=== PATIENT | male | born 1940 | race Caucasian/White ===

== ENCOUNTER 2016-04-02 07:56 | Outpatient (CLI) | payer MEDICARE, OTHER | END 2016-04-02 07:57 | disposition home or self-care (01) | DX: E78.2 Mixed hyperlipidemia (principal); Z79.899 Other long term (current) drug therapy; I10 Essential (primary) hypertension; I25.10 Atherosclerotic heart disease of native coronary artery without angina pectoris ==

== ENCOUNTER 2016-04-17 11:13 | Outpatient (CLI) | payer MEDICARE, OTHER | END 2016-04-17 11:14 | disposition home or self-care (01) | DX: I71.4 Abdominal aortic aneurysm, without rupture (principal) ==

== ENCOUNTER 2016-04-23 08:00 | Outpatient (CLI) | payer MEDICARE, OTHER | END 2016-04-23 08:01 | disposition home or self-care (01) | DX: R73.09 Other abnormal glucose (principal) ==

== ENCOUNTER 2016-08-07 08:03 | Outpatient (CLI) | payer MEDICARE, OTHER ==
[2016-08-07 14:31] LABS: HEMOGLOBIN A1C 0.71 g/dL
== END 2016-08-07 08:04 | disposition home or self-care (01) ==
LOC: LAB.R 08:03
PROVIDERS: ATTEND Physician Assistant Medical
DX: E11.9 Type 2 diabetes mellitus without complications (principal)
CPT/HCPCS: 82947; 83036

== ENCOUNTER 2016-10-13 11:29 | Outpatient (CLI) | payer MEDICARE, OTHER ==
[2016-10-13 12:07] LABS: BASOPHILS # (AUTO) 0.1 10^3/uL (0.0-0.1); BASOPHILS % (AUTO) 0.8 %; EOSINOPHILS # (AUTO) 0.1 10^3/uL (0.0-0.7); EOSINOPHILS % (AUTO) 1.6 %; HCT - HEMATOCRIT 40.5 % (42.0-52.0); HGB - HEMOGLOBIN 13.9 g/dL (14.0-18.0); LYMPHOCYTES # (AUTO) 1.6 10^3/uL (1.5-3.5); LYMPHOCYTES % (AUTO) 24.9 %; MEAN CORPUSCULAR HEMOGLOBIN 31.8 pg (27.0-31.0); MEAN CORPUSCULAR HGB CONC 34.3 g/dL (32.0-36.0); MEAN CORPUSCULAR VOLUME 92.7 fL (80.0-94.0); MEAN PLATELET VOLUME 8.2 fL (7.4-11.4); MONOCYTES # (AUTO) 0.5 10^3/uL (0.0-1.0); MONOCYTES % (AUTO) 8.1 %; NEUTROPHILS # (AUTO) 4.1 10^3/uL (1.5-6.6); NEUTROPHILS % (AUTO) 64.6 %; RED BLOOD COUNT 4.37 10^6/uL (4.70-6.10); UNCORRECTED WHITE BLOOD COUNT 6.4 x10^3/uL; WHITE BLOOD COUNT 6.4 x10^3/uL (4.8-10.8)
[2016-10-13 12:20] LABS: ALBUMIN/GLOBULIN RATIO 1.5 (1.0-2.2); BILIRUBIN,TOTAL 0.6 mg/dL (0.2-1.0); CALCIUM 9.7 mg/dL (8.5-10.3); CREATININE 1.1 mg/dL (0.6-1.2); POTASSIUM 4.6 mmol/L (3.5-5.0); TOTAL PROTEIN 7.2 g/dL (6.7-8.2)
[2016-10-13 12:27] LABS: CREATINE KINASE MB 6.1 ng/mL (0.6-6.3)
[2016-10-13 12:37] LABS: TROPONIN I < 0.04 ng/mL (<0.49)
== END 2016-10-13 11:30 | disposition home or self-care (01) ==
LOC: LAB 11:29
PROVIDERS: ATTEND Physician Assistant Medical
DX: R07.9 Chest pain, unspecified (principal); I10 Essential (primary) hypertension
CPT/HCPCS: 36415; 80053; 82553; 84484; 85025

== ENCOUNTER 2016-12-01 08:56 | Outpatient (CLI) | payer MEDICARE, OTHER ==
[2016-12-01 20:16] LABS: HEMOGLOBIN A1C 0.61 g/dL
== END 2016-12-01 08:57 | disposition home or self-care (01) ==
LOC: LAB.R 08:56
PROVIDERS: ATTEND Physician Assistant Medical
DX: E11.9 Type 2 diabetes mellitus without complications (principal); Z79.899 Other long term (current) drug therapy
CPT/HCPCS: 82947; 83036

== ENCOUNTER 2017-02-14 19:59 | Emergency (ER) | payer MEDICARE, OTHER ==
[2017-02-14 20:05] VITALS: BP 154/63
--- NOTE | 2017-02-14 20:28 | ED Physician Documentation ---
PD HPI SKIN - Stated complaint Stated Complaint: LIP LAC - Chief complaint Chief Complaint: Laceration - History obtained from History obtained from: Patient - History of Present Illness Timing - onset: Other (He has always had a mole on the upper lip, he is on Plavix. He cut himself shaving this morning and it has not stopped bleeding.) Review of Systems Constitutional: reports: Reviewed and negative Throat: reports: Reviewed and negative Cardiac: reports: Reviewed and negative PD PAST MEDICAL HISTORY - Past Medical History Past Medical History: Yes Cardiovascular: Other - Past Surgical History Past Surgical History: Yes - Present Medications Home Medications: Ambulatory Orders Medication Instructions Recorded Confirmed Aspirin 81 mg PO DAILY 09/06/14 02/14/17 Atorvastatin [Lipitor] 80 mg PO DAILY 09/06/14 02/14/17 Calcium Carbonate/Vitamin D3 1 each PO DAILY 02/14/17 02/14/17 [Calcium 600-Vit D3 500 Softgel] Clopidogrel [Plavix] 75 mg PO ONCE 02/14/17 02/14/17 Iron,Carbonyl/Ascorbic Acid [Fe C 1 tab PO DAILY 02/14/17 02/14/17 Tablet] Lisinopril 20 mg PO DAILY 02/14/17 02/14/17 Metoprolol Tartrate 50 mg PO DAILY 02/14/17 02/14/17 Nitroglycerin 0.4 mg SL PRN PRN 02/14/17 02/14/17 Ubidecarenone [Co Q-10] 10 mg PO DAILY 02/14/17 02/14/17 metFORMIN [Glucophage] 500 mg PO DAILY 02/14/17 02/14/17 - Allergies Allergies/Adverse Reactions: Allergies Allergy/AdvReac Type Severity Reaction Status Date / Time Sulfa (Sulfonamide Allergy Rash Verified 12/18/15 09:24 Antibiotics) - Social History Does the pt smoke?: No Smoking Status: Never smoker Does the pt drink ETOH?: No Does the pt have substance abuse?: No - Immunizations Immunizations are current?: Yes - POLST Patient has POLST: No PD ED PE NORMAL - Vitals Vital signs reviewed: Yes - General General: Alert and oriented X 3, No acute distress - HEENT HEENT: Other (There is a little lesion on the upper lip only about 2 mm around with active slight bleeding.) - Neck Neck: Supple, no meningeal sign, No bony TTP - Neuro Neuro: Alert and oriented X 3, Normal speech Results - Vitals Vitals: Vital Signs - 24 hr 02/14/17 20:03 Temperature 35.9 C L Heart Rate 66 Respiratory 18 Rate Blood Pressure 154/63 H O2 Saturation 99 Oxygen O2 Source Room air Procedures - General procedure General procedure: The bleeding area was locally infiltrated with lidocaine with epinephrine and then cauterized with silver nitrate with successful hemostasis. Departure - Departure Disposition: Home, Self Care Clinical Impression: Bleeding from wound Condition: Good Record reviewed to determine appropriate education?: Yes Instructions: ED Abrasion Comments: Your blood pressure was elevated today on check into the emergency department. This does not mean that you have hypertension, it is a common phenomenon to come to the emergency department and have elevated blood pressure. I recommend that you see your primary care physician within the week to have it rechecked when you are feeling better.
== END 2017-02-14 20:36 | disposition home or self-care (01) ==
LOC: ED 19:59
DX: S01.511A Laceration without foreign body of lip, initial encounter (principal); W45.8XXA Other foreign body or object entering through skin, initial encounter; Y93.E8 Activity, other personal hygiene; R03.0 Elevated blood-pressure reading, without diagnosis of hypertension; Z79.02 Long term (current) use of antithrombotics/antiplatelets; Z79.82 Long term (current) use of aspirin
CPT/HCPCS: 99282

== ENCOUNTER 2017-04-09 07:56 | Outpatient (CLI) | payer MEDICARE, OTHER ==
[2017-04-09 12:25] LABS: BASOPHILS % (AUTO) 0.9 %; EOSINOPHILS # (AUTO) 0.1 10^3/uL (0.0-0.7); EOSINOPHILS % (AUTO) 2.4 %; LYMPHOCYTES # (AUTO) 1.3 10^3/uL (1.5-3.5); LYMPHOCYTES % (AUTO) 28.8 %; MEAN CORPUSCULAR HGB CONC 33.1 g/dL (32.0-36.0); MEAN CORPUSCULAR VOLUME 93.7 fL (80.0-94.0); MEAN PLATELET VOLUME 9.2 fL (7.4-11.4); MONOCYTES # (AUTO) 0.4 10^3/uL (0.0-1.0); MONOCYTES % (AUTO) 9.3 %; NEUTROPHILS # (AUTO) 2.6 10^3/uL (1.5-6.6); NEUTROPHILS % (AUTO) 58.6 %; PLT - PLATELET COUNT 143 10^3/uL (130-450); RED BLOOD COUNT 4.21 10^6/uL (4.70-6.10); RED CELL DISTRIBUTION WIDTH 14.5 % (12.0-15.0); WHITE BLOOD COUNT 4.5 x10^3/uL (4.8-10.8)
[2017-04-09 12:29] LABS: ALBUMIN 4.1 g/dL (3.2-5.5); ALBUMIN/GLOBULIN RATIO 1.7 (1.0-2.2); ALKALINE PHOSPHATASE 50 IU/L (42-121); ALT ALANINE AMINOTRANSFERASE 24 IU/L (10-60); AST ASPARTATE AMINOTRANSFERASE 20 IU/L (10-42); BILIRUBIN,TOTAL 0.6 mg/dL (0.2-1.0); BUN - BLOOD UREA NITROGEN 18 mg/dL (6-20); CALCIUM 9.1 mg/dL (8.5-10.3); CARBON DIOXIDE - CO2 29 mmol/L (21-32); CHLORIDE 101 mmol/L (101-111); CHOL/HDL RATIO 3.2 (<5.0); CHOLESTEROL 118 mg/dL; CREATININE 1.1 mg/dL (0.6-1.2); GFR - MDRD 65 (>89); GLUCOSE 103 mg/dL (70-100); HDL CHOLESTEROL 37 mg/dL; LDL CHOLESTEROL,CALCULATED 55 mg/dL; LDL/HDL RATIO 1.5 (<3.6); SODIUM 138 mmol/L (135-145); TOTAL PROTEIN 6.5 g/dL (6.7-8.2); VLDL CHOLESTEROL 26 mg/dL
[2017-04-09 13:13] LABS: HEMOGLOBIN A1C 0.52 g/dL; HEMOGLOBIN A1C % 5.5 % (4.6-6.2)
== END 2017-04-09 07:57 | disposition home or self-care (01) ==
LOC: LAB.R 07:56
PROVIDERS: ATTEND Physician Assistant Medical
DX: Z79.899 Other long term (current) drug therapy (principal); E11.9 Type 2 diabetes mellitus without complications; Z12.5 Encounter for screening for malignant neoplasm of prostate; I25.10 Atherosclerotic heart disease of native coronary artery without angina pectoris; I10 Essential (primary) hypertension
CPT/HCPCS: 36415; 80053; 80061; 83036; 85025; G0103; 83721; 84153

== ENCOUNTER 2017-04-16 09:00 | Outpatient (CLI) | payer MEDICARE, OTHER ==
[2017-04-16 15:33] LABS: MEAN RETIC VALUE 118.2; RED BLOOD COUNT 4.55 10^6/uL (4.70-6.10)
[2017-04-16 16:02] LABS: FERRITIN 245.8 ng/mL (23.9-336.2)
== END 2017-04-16 09:01 | disposition home or self-care (01) ==
LOC: LAB.R 09:00
PROVIDERS: ATTEND Physician Assistant Medical
DX: D64.9 Anemia, unspecified (principal)
CPT/HCPCS: 82607; 82728; 83010; 85044; 86880

== ENCOUNTER 2017-06-07 09:30 | Outpatient (CLI) | payer MEDICARE, OTHER | END 2017-06-07 09:31 | disposition home or self-care (01) | LOC: SC 09:30 | PROVIDERS: ATTEND Internal Medicine Pulmonary Disease | DX: G47.30 Sleep apnea, unspecified (principal); G47.10 Hypersomnia, unspecified; G47.8 Other sleep disorders; R06.83 Snoring | CPT/HCPCS: 99203; G0463; 99212 ==

== ENCOUNTER 2017-06-16 05:45 | Emergency (ER) | payer MEDICARE, OTHER ==
--- NOTE | 2017-06-16 07:10 | XRAY Report ---
EXAM: RIGHT ANKLE RADIOGRAPHY EXAM DATE: 06/16/2017 06:53 AM. CLINICAL HISTORY: Pain after injury yesterday working in the yard. COMPARISON: None. TECHNIQUE: 3 views. FINDINGS: Bones: No acute fracture or focal osseous lesion. Joints: Normal. No effusion. No subluxations. The ankle mortise is normally aligned. Soft Tissues: Minimal soft tissue swelling, most pronounced laterally and anteriorly. IMPRESSION: No acute osseous abnormality. [facility] Referring Provider Line: [phone] SITE ID: [id number]
[2017-06-16] MEDS ORDERED: ACETAMINOPHEN 325 MG TABLET PO STA (08:08)
--- NOTE | 2017-06-16 08:08 | ED Physician Documentation ---
History of Present Illness - Stated complaint Stated Complaint: RT ANKLE PAIN - Chief complaint Chief Complaint: Trauma Ext - Additonal information Additional information: hx from pt rolled R ankle edging lawn yesterday focal pain distal tibia above mall no other concerns Review of Systems Musculoskeletal: reports: Pain with weight bearing PD PAST MEDICAL HISTORY - Past Medical History Past Medical History: Yes Cardiovascular: Other - Past Surgical History Past Surgical History: Yes Cardiovascular: Coronary stent - Present Medications Home Medications: Ambulatory Orders Medication Instructions Recorded Confirmed Aspirin 81 mg PO DAILY 09/06/14 06/16/17 Atorvastatin [Lipitor] 80 mg PO DAILY 09/06/14 06/16/17 Calcium Carbonate/Vitamin D3 1 each PO DAILY 02/14/17 06/16/17 [Calcium 600-Vit D3 500 Softgel] Clopidogrel [Plavix] 75 mg PO ONCE 02/14/17 06/16/17 Iron,Carbonyl/Ascorbic Acid [Fe C 1 tab PO DAILY 02/14/17 06/16/17 Tablet] Lisinopril 20 mg PO DAILY 02/14/17 06/16/17 Metoprolol Tartrate 50 mg PO DAILY 02/14/17 06/16/17 Nitroglycerin 0.4 mg SL PRN PRN 02/14/17 06/16/17 Ubidecarenone [Co Q-10] 10 mg PO DAILY 02/14/17 06/16/17 metFORMIN [Glucophage] 250 mg PO DAILY 02/14/17 06/16/17 - Allergies Allergies/Adverse Reactions: Allergies Allergy/AdvReac Type Severity Reaction Status Date / Time Sulfa (Sulfonamide Allergy Rash Verified 06/16/17 06:50 Antibiotics) - Social History Does the pt smoke?: No Smoking Status: Never smoker Does the pt drink ETOH?: No Does the pt have substance abuse?: No - Immunizations Immunizations are current?: Yes - POLST Patient has POLST: No PD ED PE NORMAL - Vitals Vital signs reviewed: Yes - Cardiac Cardiac: RRR - Respiratory Respiratory: No respiratory distress, Clear bilaterally - Extremities Extremities: Other (TTP dital tibia approx 4 cmm abobe and ant to medial mall, motor and cap refill and pulse intact, slightly dec sensation is baseline per pt ) Results - Vitals Vitals: Vital Signs - 24 hr 06/16/17 05:55 Temperature 36.6 C Heart Rate 76 Respiratory 16 Rate Blood Pressure 142/69 H O2 Saturation 97 Oxygen O2 Source Room air - Rads (name of study) R ankle Radiology: See rad report (neg) Departure - Departure Disposition: 01 Home, Self Care Clinical Impression: High ankle sprain Qualifiers: Encounter type: initial encounter Laterality: right Qualified Code(s): S93.431A - Sprain of tibiofibular ligament of right ankle, initial encounter Condition: Good Instructions: ED Sprain Ankle W X Ray Follow-Up: Yamel Faye PA-C [Primary Care Provider] - Comments: The xray shows no fractures. Recommend ice for 20 min three times a day, an PEPPER wrap for support, tylenol for the pain. If still painful in two weeks, please see your PMD for consideration of further imaging
[2017-06-16 08:33] VITALS: BP 155/62
== END 2017-06-16 08:34 | disposition home or self-care (01) ==
LOC: ED 05:45
DX: S93.431A Sprain of tibiofibular ligament of right ankle, initial encounter (principal); X50.1XXA Overexertion from prolonged static or awkward postures, initial encounter; Y93.H2 Activity, gardening and landscaping; Z79.82 Long term (current) use of aspirin; Z79.02 Long term (current) use of antithrombotics/antiplatelets; Z95.5 Presence of coronary angioplasty implant and graft
CPT/HCPCS: 73610; 99282; 99283; A9270

== ENCOUNTER 2017-07-07 20:44 | Outpatient (CLI) | payer MEDICARE, OTHER | END 2017-07-07 20:45 | disposition home or self-care (01) | LOC: SC 20:44 | PROVIDERS: ATTEND Internal Medicine Pulmonary Disease | DX: G47.33 Obstructive sleep apnea (adult) (pediatric) (principal) | CPT/HCPCS: 95810 ==

== ENCOUNTER 2017-07-29 09:00 | Outpatient (CLI) | payer MEDICARE, OTHER ==
[2017-07-29 14:30] LABS: BASOPHILS # (AUTO) 0.1 10^3/uL (0.0-0.1); EOSINOPHILS # (AUTO) 0.1 10^3/uL (0.0-0.7); EOSINOPHILS % (AUTO) 2.4 %; HGB - HEMOGLOBIN 13.2 g/dL (14.0-18.0); LYMPHOCYTES # (AUTO) 1.4 10^3/uL (1.5-3.5); LYMPHOCYTES % (AUTO) 25.6 %; MEAN CORPUSCULAR HEMOGLOBIN 31.5 pg (27.0-31.0); MEAN CORPUSCULAR HGB CONC 32.8 g/dL (32.0-36.0); MEAN CORPUSCULAR VOLUME 96.1 fL (80.0-94.0); MEAN PLATELET VOLUME 9.2 fL (7.4-11.4); MONOCYTES # (AUTO) 0.5 10^3/uL (0.0-1.0); MONOCYTES % (AUTO) 8.7 %; NEUTROPHILS # (AUTO) 3.4 10^3/uL (1.5-6.6); NEUTROPHILS % (AUTO) 62.3 %; PLT - PLATELET COUNT 154 10^3/uL (130-450); RED BLOOD COUNT 4.18 10^6/uL (4.70-6.10); RED CELL DISTRIBUTION WIDTH 13.7 % (12.0-15.0); WHITE BLOOD COUNT 5.4 x10^3/uL (4.8-10.8)
[2017-07-29 14:44] LABS: HB2 TOTAL 14.4 g/dL; HEMOGLOBIN A1C 0.55 g/dL; HEMOGLOBIN A1C % 5.6 % (4.6-6.2)
== END 2017-07-29 09:01 | disposition home or self-care (01) ==
LOC: LAB.R 09:00
PROVIDERS: ATTEND Physician Assistant Medical
DX: E11.9 Type 2 diabetes mellitus without complications (principal); D64.9 Anemia, unspecified; Z79.899 Other long term (current) drug therapy
CPT/HCPCS: 82947; 83036; 85025

== ENCOUNTER 2017-08-23 09:11 | Outpatient (CLI) | payer MEDICARE, OTHER | END 2017-08-23 09:12 | disposition home or self-care (01) | LOC: SC 09:11 | PROVIDERS: ATTEND Nurse Practitioner Family | DX: G47.33 Obstructive sleep apnea (adult) (pediatric) (principal) | CPT/HCPCS: 99214; G0463; 99212 ==

== ENCOUNTER 2017-10-18 19:20 | Outpatient (CLI) | payer MEDICARE, OTHER | END 2017-10-18 19:21 | disposition home or self-care (01) | LOC: SC 19:20 | PROVIDERS: ATTEND Internal Medicine Pulmonary Disease | DX: G47.33 Obstructive sleep apnea (adult) (pediatric) (principal) | CPT/HCPCS: 95811 ==

== ENCOUNTER 2017-11-15 08:00 | Outpatient (CLI) | payer MEDICARE, OTHER ==
[2017-11-15 14:00] LABS: BASOPHILS % (AUTO) 0.7 %; EOSINOPHILS # (AUTO) 0.1 10^3/uL (0.0-0.7); EOSINOPHILS % (AUTO) 2.3 %; HGB - HEMOGLOBIN 13.2 g/dL (14.0-18.0); LYMPHOCYTES # (AUTO) 1.3 10^3/uL (1.5-3.5); LYMPHOCYTES % (AUTO) 28.8 %; MEAN CORPUSCULAR HEMOGLOBIN 31.5 pg (27.0-31.0); MEAN CORPUSCULAR HGB CONC 33.8 g/dL (32.0-36.0); MEAN CORPUSCULAR VOLUME 93.2 fL (80.0-94.0); MEAN PLATELET VOLUME 8.8 fL (7.4-11.4); MONOCYTES # (AUTO) 0.5 10^3/uL (0.0-1.0); MONOCYTES % (AUTO) 9.9 %; NEUTROPHILS # (AUTO) 2.7 10^3/uL (1.5-6.6); NEUTROPHILS % (AUTO) 58.3 %; PLT - PLATELET COUNT 164 10^3/uL (130-450); RED BLOOD COUNT 4.18 10^6/uL (4.70-6.10); RED CELL DISTRIBUTION WIDTH 13.4 % (12.0-15.0); WHITE BLOOD COUNT 4.7 x10^3/uL (4.8-10.8)
[2017-11-15 14:04] LABS: ALBUMIN/GLOBULIN RATIO 1.5 (1.0-2.2); BILIRUBIN,TOTAL 0.8 mg/dL (0.2-1.0); CALCIUM 8.6 mg/dL (8.5-10.3); CREATININE 1.1 mg/dL (0.6-1.2); TOTAL PROTEIN 6.7 g/dL (6.7-8.2)
[2017-11-15 14:15] LABS: PSA FREE 0.434 ng/mL (0.16-2.81)
[2017-11-15 14:16] LABS: PSA TOTAL 3.105 ng/mL (0.000-2.000)
[2017-11-15 16:28] LABS: HB2 TOTAL 13.7 g/dL; HEMOGLOBIN A1C 0.52 g/dL; HEMOGLOBIN A1C % 5.6 % (4.6-6.2)
== END 2017-11-15 08:01 | disposition home or self-care (01) ==
LOC: LAB.R 08:00
PROVIDERS: ATTEND Physician Assistant Medical
DX: Z12.5 Encounter for screening for malignant neoplasm of prostate (principal); E11.9 Type 2 diabetes mellitus without complications; Z79.899 Other long term (current) drug therapy; D64.9 Anemia, unspecified
CPT/HCPCS: 80053; 83036; 84154; 85025

== ENCOUNTER 2017-11-22 13:01 | Outpatient (CLI) | payer MEDICARE, OTHER | END 2017-11-22 13:02 | disposition home or self-care (01) | LOC: SC 13:01 | PROVIDERS: ATTEND Nurse Practitioner Family | DX: G47.33 Obstructive sleep apnea (adult) (pediatric) (principal) | CPT/HCPCS: 99214; G0463; 99212 ==

== ENCOUNTER 2018-01-03 10:35 | Outpatient (CLI) | payer MEDICARE, OTHER | END 2018-01-03 10:36 | disposition home or self-care (01) | LOC: SC 10:35 | PROVIDERS: ATTEND Nurse Practitioner Family | DX: G47.33 Obstructive sleep apnea (adult) (pediatric) (principal) | CPT/HCPCS: 99214; G0463; 99212 ==

== ENCOUNTER 2018-02-02 10:08 | Outpatient (CLI) | payer MEDICARE, OTHER | END 2018-02-02 10:09 | disposition home or self-care (01) | LOC: SC 10:08 | PROVIDERS: ATTEND Nurse Practitioner Family | DX: G47.33 Obstructive sleep apnea (adult) (pediatric) (principal) | CPT/HCPCS: 99214; G0463; 99212 ==

== ENCOUNTER 2018-04-12 13:41 | Outpatient (CLI) | payer MEDICARE, OTHER | END 2018-04-12 13:42 | disposition home or self-care (01) | LOC: SC 13:41 | PROVIDERS: ATTEND Nurse Practitioner Family | DX: G47.33 Obstructive sleep apnea (adult) (pediatric) (principal) | CPT/HCPCS: 99214; G0463; 99212 ==

== ENCOUNTER 2018-05-11 09:13 | Outpatient (CLI) | payer MEDICARE, OTHER ==
[2018-05-11 09:54] LABS: ALBUMIN/GLOBULIN RATIO 1.3 (1.0-2.2); ALKALINE PHOSPHATASE 59 IU/L (42-121); ALT ALANINE AMINOTRANSFERASE 24 IU/L (10-60); AST ASPARTATE AMINOTRANSFERASE 20 IU/L (10-42); BILIRUBIN,TOTAL 0.7 mg/dL (0.2-1.0); BUN - BLOOD UREA NITROGEN 27 mg/dL (6-20); CARBON DIOXIDE - CO2 28 mmol/L (21-32); CHLORIDE 100 mmol/L (101-111); CHOL/HDL RATIO 3.5 (<5.0); CHOLESTEROL 138 mg/dL; CREATININE 1.2 mg/dL (0.6-1.2); GFR - MDRD 58 (>89); GLUCOSE 111 mg/dL (70-100); HDL CHOLESTEROL 40 mg/dL; LDL CHOLESTEROL,CALCULATED 75 mg/dL; LDL/HDL RATIO 1.9 (<3.6); SODIUM 135 mmol/L (135-145); VLDL CHOLESTEROL 23 mg/dL
== END 2018-05-11 09:14 | disposition home or self-care (01) ==
LOC: LAB 09:13
PROVIDERS: ATTEND Internal Medicine
DX: E78.5 Hyperlipidemia, unspecified (principal)
CPT/HCPCS: 36415; 80053; 80061; 83721

== ENCOUNTER 2018-10-25 05:52 | Emergency (ER) | payer MEDICARE, OTHER ==
--- NOTE | 2018-10-25 07:34 | ED Physician Documentation ---
PD HPI URI - Stated complaint Stated Complaint: SORE THROAT/CONGESTION - Chief complaint Chief Complaint: Heent - History obtained from History obtained from: Patient - History of Present Illness Timing - onset: How many days ago (3) Timing duration: Days (3) Timing details: Gradual onset, Still present Associated symptoms: Fever, Chills, Sore throat. No: Nasal congestion, Swollen nodes, Dry cough, NVD Contributing factors: No: Sick contact, Travel, Immunocompromised Similar symptoms before: Has not had sx before Review of Systems Constitutional: reports: Fever (subjective), Chills, Myalgias Nose: denies: Rhinorrhea / runny nose, Congestion Throat: reports: Sore throat. denies: Dental pain / toothache Respiratory: denies: Cough Skin: denies: Rash Neurologic: denies: Generalized weakness, Altered mental status PD PAST MEDICAL HISTORY - Past Medical History Cardiovascular: Other - Past Surgical History Past Surgical History: Yes Cardiovascular: Coronary stent - Present Medications Home Medications: Ambulatory Orders Medication Instructions Recorded Confirmed Aspirin 81 mg PO DAILY 09/06/14 06/16/17 Atorvastatin [Lipitor] 80 mg PO DAILY 09/06/14 06/16/17 Calcium Carbonate/Vitamin D3 1 each PO DAILY 02/14/17 06/16/17 [Calcium 600-Vit D3 500 Softgel] Clopidogrel [Plavix] 75 mg PO ONCE 02/14/17 06/16/17 Iron,Carbonyl/Ascorbic Acid [Fe C 1 tab PO DAILY 02/14/17 06/16/17 Tablet] Lisinopril 20 mg PO DAILY 02/14/17 06/16/17 Metoprolol Tartrate 50 mg PO DAILY 02/14/17 06/16/17 Nitroglycerin 0.4 mg SL PRN PRN 02/14/17 06/16/17 Ubidecarenone [Co Q-10] 10 mg PO DAILY 02/14/17 06/16/17 metFORMIN [Glucophage] 250 mg PO DAILY 02/14/17 06/16/17 Cephalexin [Keflex] 500 mg PO Q6H #28 capsule 10/25/18 Hydrocodone/Acetaminophen [[place] 1 each PO Q6H PRN #12 tablet 10/25/18 5-325 Tablet] dexAMETHasone [Decadron] 4 mg PO DAILY #7 tablet 10/25/18 - Allergies Allergies/Adverse Reactions: Allergies Allergy/AdvReac Type Severity Reaction Status Date / Time Sulfa (Sulfonamide Allergy Rash Verified 10/25/18 06:00 Antibiotics) - Social History Does the pt smoke?: No Smoking Status: Never smoker Does the pt drink ETOH?: No Does the pt have substance abuse?: No - Immunizations Immunizations are current?: Yes - POLST Patient has POLST: No PD ED PE NORMAL - Vitals Vital signs reviewed: Yes - General General: Alert and oriented X 3, Well developed/nourished, Other (he appears uncomfortable swallowing and has slight garbling of voice sounds) - HEENT HEENT: Ears normal. No: Pharynx benign (uvula and central portion of posterior soft pallate is very red and swollen. Tongue and lips are okay. No peritonsillar edema seen. ) - Neck Neck: Supple, no meningeal sign, No adenopathy - Cardiac Cardiac: RRR, No murmur - Respiratory Respiratory: Clear bilaterally - Derm Derm: Normal color, Warm and dry - Extremities Extremities: No edema, No calf tenderness / cord - Neuro Neuro: Alert and oriented X 3, No motor deficit, Normal speech Results - Vitals Vitals: Oxygen O2 Source Room air - Labs Labs: Laboratory Tests 10/25/18 06:00 Group A Strep Rapid Negative PD MEDICAL DECISION MAKING - ED course Complexity details: considered differential (uvulitis mostly with very red and swollen but no exudate. Is redder and more painful than expected from PEPPER reaction so treat as infection. ), d/w patient Departure - Departure Disposition: 01 Home, Self Care Clinical Impression: Uvulitis, Throat pain in adult Condition: Stable Record reviewed to determine appropriate education?: Yes Follow-Up: Blair Seals MD [Primary Care Provider] - Prescriptions: Cephalexin [Keflex] 500 mg PO Q6H #28 capsule dexAMETHasone [Decadron] 4 mg PO DAILY #7 tablet Hydrocodone/Acetaminophen [[place] 5-325 Tablet] 1 each PO Q6H PRN #12 tablet PRN Reason: Pain Comments: This does look more likely an infection given the redness and pain of it. For it take cephalexin 4 times a day for the next week as directed. Also Decadron steroid daily for a week to reduce the swelling of it. Tylenol or ibuprofen if needed for pains. Add hydrocodone if needed for worse pain. You should notice improvement well through the morning and afternoon, improving, but may take a few days for complete improvement. Return if worsening through the day or into tomorrow. Sometimes he can get swelling in the back of the throat and uvula like this as a reaction to lisinopril in its regardless of how long you have been on it. With that in mind, I would suggest stopping your lisinopril for now until you follow- up with your primary care to discuss it further. Discharge Date/Time: 10/25/18 08:16
[2018-10-25] MEDS ORDERED: CHERRY SYRUP 10 ML UDC PO ONE (07:42)
[2018-10-25] MEDS ORDERED: cephALEXin 250 MG CAPSULE PO STA (07:42)
[2018-10-25] MEDS ORDERED: HYDROcod/ACETAM 5/325 MG TABLET PO STA (07:42)
[2018-10-25] MEDS ORDERED: diphenhydrAMINE ELIXIR 25 MG/10 ML UDC PO STA (07:42)
[2018-10-25] MEDS ORDERED: DEXAMETHASONE 10 MG/ML VIAL PO STA (07:42)
[2018-10-25 08:16] VITALS: BP 139/63
== END 2018-10-25 08:16 | disposition home or self-care (01) ==
LOC: ED 05:52
DX: K12.2 Cellulitis and abscess of mouth (principal); R07.0 Pain in throat; Z79.82 Long term (current) use of aspirin
CPT/HCPCS: 87070; 87077; 87430; 99283; 99284; A9270

== ENCOUNTER 2018-11-02 10:58 | Outpatient (CLI) | payer MEDICARE, OTHER ==
[2018-11-02 11:12] LABS: BASOPHILS # (AUTO) 0.1 10^3/uL (0.0-0.1); BASOPHILS % (AUTO) 0.5 %; EOSINOPHILS # (AUTO) 0.2 10^3/uL (0.0-0.7); EOSINOPHILS % (AUTO) 1.4 %; HGB - HEMOGLOBIN 13.4 g/dL (14.0-18.0); LYMPHOCYTES # (AUTO) 2.5 10^3/uL (1.5-3.5); LYMPHOCYTES % (AUTO) 22.9 %; MEAN CORPUSCULAR HEMOGLOBIN 31.6 pg (27.0-31.0); MEAN CORPUSCULAR HGB CONC 32.8 g/dL (32.0-36.0); MEAN CORPUSCULAR VOLUME 96.5 fL (80.0-94.0); MEAN PLATELET VOLUME 9.4 fL (7.4-11.4); MONOCYTES % (AUTO) 9.1 %; NEUTROPHILS # (AUTO) 6.6 10^3/uL (1.5-6.6); NEUTROPHILS % (AUTO) 60.6 %; PLT - PLATELET COUNT 205 10^3/uL (130-450); RED BLOOD COUNT 4.24 10^6/uL (4.70-6.10); RED CELL DISTRIBUTION WIDTH 12.8 % (12.0-15.0); WHITE BLOOD COUNT 10.9 x10^3/uL (4.8-10.8)
[2018-11-02 11:27] LABS: ALBUMIN 3.7 g/dL (3.2-5.5); ALBUMIN/GLOBULIN RATIO 1.2 (1.0-2.2); BILIRUBIN,TOTAL 0.5 mg/dL (0.2-1.0); CALCIUM 9.1 mg/dL (8.5-10.3); CREATININE 1.1 mg/dL (0.6-1.2); TOTAL PROTEIN 6.7 g/dL (6.7-8.2)
== END 2018-11-02 10:59 | disposition home or self-care (01) ==
LOC: LAB 10:58
PROVIDERS: ATTEND Family Medicine
DX: J01.90 Acute sinusitis, unspecified (principal); I10 Essential (primary) hypertension
CPT/HCPCS: 36415; 80053; 84443; 85025

== ENCOUNTER 2019-07-28 07:57 | Outpatient (CLI) | payer MEDICARE, OTHER ==
[2019-07-28 08:09] LABS: BASOPHILS % (AUTO) 0.7 %; EOSINOPHILS # (AUTO) 0.2 10^3/uL (0.0-0.7); EOSINOPHILS % (AUTO) 2.6 %; HGB - HEMOGLOBIN 14.1 g/dL (14.0-18.0); LYMPHOCYTES # (AUTO) 1.6 10^3/uL (1.5-3.5); LYMPHOCYTES % (AUTO) 27.4 %; MEAN CORPUSCULAR HEMOGLOBIN 31.9 pg (27.0-31.0); MEAN CORPUSCULAR HGB CONC 33.2 g/dL (32.0-36.0); MEAN CORPUSCULAR VOLUME 96.2 fL (80.0-94.0); MEAN PLATELET VOLUME 10.2 fL (7.4-11.4); MONOCYTES # (AUTO) 0.5 10^3/uL (0.0-1.0); MONOCYTES % (AUTO) 9.1 %; NEUTROPHILS # (AUTO) 3.4 10^3/uL (1.5-6.6); PLT - PLATELET COUNT 154 10^3/uL (130-450); RED BLOOD COUNT 4.42 10^6/uL (4.70-6.10); RED CELL DISTRIBUTION WIDTH 12.5 % (12.0-15.0); WHITE BLOOD COUNT 5.7 x10^3/uL (4.8-10.8)
[2019-07-28 08:26] LABS: ALBUMIN 4.3 g/dL (3.2-5.5); ALBUMIN/GLOBULIN RATIO 1.7 (1.0-2.2); ALKALINE PHOSPHATASE 64 IU/L (42-121); ALT ALANINE AMINOTRANSFERASE 30 IU/L (10-60); AST ASPARTATE AMINOTRANSFERASE 23 IU/L (10-42); BILIRUBIN,TOTAL 0.9 mg/dL (0.2-1.0); BUN - BLOOD UREA NITROGEN 24 mg/dL (6-20); CALCIUM 8.9 mg/dL (8.5-10.3); CARBON DIOXIDE - CO2 25 mmol/L (21-32); CHLORIDE 101 mmol/L (101-111); CHOLESTEROL 176 mg/dL; CREATININE 1.1 mg/dL (0.6-1.2); GLUCOSE 140 mg/dL (70-100); HDL CHOLESTEROL 44 mg/dL; LDL CHOLESTEROL,CALCULATED 79 mg/dL; LDL/HDL RATIO 1.8 (<3.6); SODIUM 138 mmol/L (135-145); TOTAL PROTEIN 6.9 g/dL (6.7-8.2); VLDL CHOLESTEROL 53 mg/dL
== END 2019-07-28 07:58 | disposition home or self-care (01) ==
LOC: LAB 07:57
PROVIDERS: ATTEND Family Medicine
DX: I10 Essential (primary) hypertension (principal); J44.9 Chronic obstructive pulmonary disease, unspecified; E78.5 Hyperlipidemia, unspecified
CPT/HCPCS: 36415; 80053; 80061; 83721; 85025

== ENCOUNTER 2020-01-01 07:56 | Emergency (ER) | payer MEDICARE, OTHER ==
[2020-01-01 08:07] VITALS: BP 156/114
--- NOTE | 2020-01-01 08:34 | ED Physician Documentation ---
History of Present Illness - Stated complaint Stated Complaint: PX RT LEG - Chief complaint Chief Complaint: Ext Problem - History obtained from History obtained from: Patient - Additonal information Additional information: 79-year-old man with past medical history diabetes, high blood pressure, hyperlipidemia, coronary artery disease with stents, presents with right calf pain, gradual onset since . Patient states that he noticed it gradually worsened over the course of the day while active around the house, and it has been bothering him since with constant pain, mild at rest, worse with pressing on it and worse over the course of the day, associated with some mild swelling. He states that his calf feels harder than usual. Denies erythema, warmth, fevers, history of clots, traumatic injury. He does have some chronic neuropathy but denies new onset weakness or sensory deficits. Denies cough, shortness of breath, back pain, chest pain. Declining pain meds at this time, stating he has no pain at rest. Review of Systems Ten Systems: 10 systems reviewed and negative Constitutional: denies: Fever, Chills Skin: denies: Rash Musculoskeletal: reports: Extremity pain PD PAST MEDICAL HISTORY - Past Medical History Cardiovascular: Other - Past Surgical History Past Surgical History: Yes Cardiovascular: Coronary stent - Present Medications Home Medications: Ambulatory Orders Medication Instructions Recorded Confirmed Aspirin 81 mg PO DAILY 09/06/14 06/16/17 Atorvastatin [Lipitor] 80 mg PO DAILY 09/06/14 06/16/17 Calcium Carbonate/Vitamin D3 1 each PO DAILY 02/14/17 06/16/17 [Calcium 600-Vit D3 500 Softgel] Clopidogrel [Plavix] 75 mg PO ONCE 02/14/17 06/16/17 Iron,Carbonyl/Ascorbic Acid [Fe C 1 tab PO DAILY 02/14/17 06/16/17 Tablet] Metoprolol Tartrate 50 mg PO DAILY 02/14/17 06/16/17 Nitroglycerin 0.4 mg SL PRN PRN 02/14/17 06/16/17 Ubidecarenone [Co Q-10] 10 mg PO DAILY 02/14/17 06/16/17 lisinopriL [Lisinopril] 20 mg PO DAILY 02/14/17 06/16/17 metFORMIN [Glucophage] 250 mg PO DAILY 02/14/17 06/16/17 Cephalexin [Keflex] 500 mg PO Q6H #28 capsule 10/25/18 Hydrocodone/Acetaminophen [[place] 1 each PO Q6H PRN #12 tablet 10/25/18 5-325 Tablet] dexAMETHasone [Decadron] 4 mg PO DAILY #7 tablet 10/25/18 - Allergies Allergies/Adverse Reactions: Allergies Allergy/AdvReac Type Severity Reaction Status Date / Time Sulfa (Sulfonamide Allergy Rash Verified 01/01/20 08:07 Antibiotics) - Social History Does the pt smoke?: No Smoking Status: Never smoker Does the pt drink ETOH?: No Does the pt have substance abuse?: No - Immunizations Immunizations are current?: Yes - POLST Patient has POLST: No PD ED PE NORMAL - Vitals Vital signs reviewed: Yes - General General: Alert and oriented X 3 - HEENT HEENT: Atraumatic, PERRL, EOMI - Neck Neck: No JVD - Cardiac Cardiac: RRR - Respiratory Respiratory: No respiratory distress - Abdomen Abdomen: Non tender, Non distended - Male Male : Deferred - Rectal Rectal: Deferred - Back Back: Other (no visible deformity) - Derm Derm: Normal color, Warm and dry, No rash - Extremities Extremities: Other - Neuro Neuro: Alert and oriented X 3 - Psych Psych: Normal mood, Normal affect Results - Vitals Vitals: Vital Signs - 24 hr 01/01/20 08:00 Temperature 37.1 C Heart Rate 86 Respiratory 18 Rate Blood Pressure 156/114 H O2 Saturation 94 Oxygen O2 Source Room air PD MEDICAL DECISION MAKING - ED course Complexity details: d/w patient ED course: 79-year-old man presents for evaluation for DVT secondary to right calf pain. Will obtain ultrasound and review results with patient. If negative, he will need a follow-up ultrasound in 1 week. Patient aware.
--- NOTE | 2020-01-01 09:46 | Ultrasound Report ---
PROCEDURE: Duplex Ext Veins Right INDICATIONS: r/o DVT. patient with calf pain since TECHNIQUE: Real-time imaging, as well as color and pulse Doppler interrogation, were performed of the lower extr emity deep veins from the inguinal ligament to the popliteal fossa. COMPARISON: None. FINDINGS: The deep veins are normally compressible, and free of intraluminal thrombus. Color and pu lse Doppler demonstrate normal phasic intraluminal flow. There is normal augmentation response to di stal compression maneuver. IMPRESSION: Negative for deep venous thrombosis of the right lower extremity. Reviewed by: Lazarus Cloud MD on 01/01/2020 9:44 AM PST Approved by: Lazarus Cloud MD on 01/01/2020 9:44 AM PST Station ID: [id number]
== END 2020-01-01 09:47 | disposition home or self-care (01) ==
LOC: ED 07:56
DX: M79.661 Pain in right lower leg (principal); M79.89 Other specified soft tissue disorders; E11.40 Type 2 diabetes mellitus with diabetic neuropathy, unspecified; Z79.84 Long term (current) use of oral hypoglycemic drugs; I10 Essential (primary) hypertension; E78.5 Hyperlipidemia, unspecified; I25.10 Atherosclerotic heart disease of native coronary artery without angina pectoris; Z95.5 Presence of coronary angioplasty implant and graft; Z79.02 Long term (current) use of antithrombotics/antiplatelets; Z79.82 Long term (current) use of aspirin
CPT/HCPCS: 99282; 99283

== ENCOUNTER 2020-01-13 16:17 | Outpatient (CLI) | payer MEDICARE, OTHER ==
--- NOTE | 2020-01-13 17:11 | Ultrasound Report ---
PROCEDURE: Duplex Ext Veins Right INDICATIONS: CALF PAIN, RT TECHNIQUE: Real-time imaging, as well as color and pulse Doppler interrogation, were performed of the lower extr emity deep veins from the inguinal ligament to the popliteal fossa. COMPARISON: 01/01/2020 FINDINGS: The deep veins are normally compressible, and free of intraluminal thrombus. Color and pu lse Doppler demonstrate normal phasic intraluminal flow. There is normal augmentation response to di stal compression maneuver. IMPRESSION: No findings of deep venous thrombosis are seen. Reviewed by: Garcia Lance MD on 01/13/2020 4:09 PM [facility] Approved by: Garcia Lance MD on 01/13/2020 4:09 PM [facility] Station ID: [id number]
== END 2020-01-13 16:18 | disposition home or self-care (01) ==
LOC: DI 16:17
PROVIDERS: ATTEND Family Medicine
DX: M79.661 Pain in right lower leg (principal)

== ENCOUNTER 2020-01-22 13:20 | Outpatient (CLI) | payer MEDICARE, OTHER | END 2020-01-22 13:21 | disposition home or self-care (01) | LOC: COV 13:20 | PROVIDERS: ATTEND Family Medicine | DX: R06.02 Shortness of breath (principal); M79.10 Myalgia, unspecified site; R53.83 Other fatigue; R07.0 Pain in throat; Z20.828 Contact with and (suspected) exposure to other viral communicable diseases ==

== ENCOUNTER 2020-07-30 08:42 | Outpatient (CLI) | payer MEDICARE, OTHER ==
[2020-07-30 09:00] LABS: BASOPHILS % (AUTO) 0.7 %; EOSINOPHILS # (AUTO) 0.1 10^3/uL (0.0-0.7); EOSINOPHILS % (AUTO) 1.9 %; HCT - HEMATOCRIT 42.6 % (42.0-52.0); HGB - HEMOGLOBIN 13.8 g/dL (14.0-18.0); LYMPHOCYTES # (AUTO) 1.4 10^3/uL (1.5-3.5); LYMPHOCYTES % (AUTO) 23.7 %; MEAN CORPUSCULAR HEMOGLOBIN 31.4 pg (27.0-31.0); MEAN CORPUSCULAR HGB CONC 32.4 g/dL (32.0-36.0); MEAN PLATELET VOLUME 10.2 fL (7.4-11.4); MONOCYTES # (AUTO) 0.5 10^3/uL (0.0-1.0); MONOCYTES % (AUTO) 8.7 %; NEUTROPHILS # (AUTO) 3.7 10^3/uL (1.5-6.6); NEUTROPHILS % (AUTO) 64.7 %; PLT - PLATELET COUNT 154 10^3/uL (130-450); RED BLOOD COUNT 4.39 10^6/uL (4.70-6.10); RED CELL DISTRIBUTION WIDTH 12.2 % (12.0-15.0); WHITE BLOOD COUNT 5.8 x10^3/uL (4.8-10.8)
[2020-07-30 09:23] LABS: ALBUMIN 4.2 g/dL (3.2-5.5); ALBUMIN/GLOBULIN RATIO 1.4 (1.0-2.2); ALKALINE PHOSPHATASE 73 IU/L (42-121); ALT ALANINE AMINOTRANSFERASE 32 IU/L (10-60); AST ASPARTATE AMINOTRANSFERASE 22 IU/L (10-42); BILIRUBIN,TOTAL 0.8 mg/dL (0.2-1.0); BUN - BLOOD UREA NITROGEN 16 mg/dL (6-20); CARBON DIOXIDE - CO2 27 mmol/L (21-32); CHLORIDE 101 mmol/L (101-111); CHOL/HDL RATIO 4.2 (<5.0); CHOLESTEROL 179 mg/dL; GFR - MDRD 72 (>89); GLUCOSE 129 mg/dL (70-100); HDL CHOLESTEROL 43 mg/dL; LDL CHOLESTEROL,CALCULATED 79 mg/dL; LDL/HDL RATIO 1.8 (<3.6); POTASSIUM 4.5 mmol/L (3.5-5.0); SODIUM 137 mmol/L (135-145); TOTAL PROTEIN 7.1 g/dL (6.7-8.2); TRIGLYCERIDES 287 mg/dL; VLDL CHOLESTEROL 57 mg/dL
[2020-07-30 09:31] LABS: ESTIMATED AVERAGE GLUCOSE 154 mg/dL (70-100); THYROID STIMULATING HORMONE 3.61 uIU/mL (0.34-5.60)
== END 2020-07-30 08:43 | disposition home or self-care (01) ==
LOC: LAB 08:42
PROVIDERS: ATTEND Family Medicine
DX: Z00.00 Encounter for general adult medical examination without abnormal findings (principal); J44.9 Chronic obstructive pulmonary disease, unspecified; N40.1 Benign prostatic hyperplasia with lower urinary tract symptoms; N13.8 Other obstructive and reflux uropathy; I10 Essential (primary) hypertension; R73.9 Hyperglycemia, unspecified; E78.5 Hyperlipidemia, unspecified
CPT/HCPCS: 36415; 80053; 80061; 83036; 83721; 84153; 84443; 85025

== ENCOUNTER 2020-08-08 09:47 | Outpatient (CLI) | payer MEDICARE, OTHER ==
--- NOTE | 2020-08-08 11:11 | XRAY Report ---
PROCEDURE: Lumbar Spine 2 View INDICATIONS: NUMBNESS IN FEET TECHNIQUE: 2 views of the lumbar spine were acquired. COMPARISON: None. FINDINGS: Bones: 5 [id number] vertebrae are present. There is normal bony alignment. No vertebral body compression fractures. No suspicious bony lesions. Multilevel disc space narrowing and endplate ost eophyte formation, worst at L5-S1. Facet hypertrophy throughout the mid and lower lumbar spine. Soft tissues: Overlying bowel gas pattern is normal. No suspicious soft tissue calcifications. IMPRESSION: 1. Multilevel degenerative disc and facet disease. 2. No acute fracture. No osseous lesion. If symptoms and/or clinical suspicion for pathology continue , further assessment with repeat plain films, or advanced imaging (e.g., CT, MRI, or bone scan) is re commended for further assessment. Reviewed by: Maria A Hoover MD on 08/08/2020 11:09 AM PDT Approved by: Maria A Hoover MD on 08/08/2020 11:09 AM PDT Station ID: [id number]
== END 2020-08-08 09:48 | disposition home or self-care (01) ==
LOC: DI 09:47
PROVIDERS: ATTEND Family Medicine
DX: R20.0 Anesthesia of skin (principal); M51.37 Other intervertebral disc degeneration, lumbosacral region

== ENCOUNTER 2021-01-17 09:14 | Outpatient (CLI) | payer MEDICARE, OTHER ==
[2021-01-17 09:53] LABS: POTASSIUM 4.8 mmol/L (3.5-5.0)
[2021-01-17 10:35] LABS: PSA TOTAL 4.25 ng/mL (0.000-2.000)
[2021-01-17 11:03] LABS: ESTIMATED AVERAGE GLUCOSE 166 mg/dL (70-100); HEMOGLOBIN A1c% 7.4 % (4.27-6.07)
[2021-01-17 15:40] LABS: PSA FREE 0.718 ng/mL (0.16-2.81)
== END 2021-01-17 09:15 | disposition home or self-care (01) ==
LOC: LAB 09:14
PROVIDERS: ATTEND Family Medicine
DX: E11.9 Type 2 diabetes mellitus without complications (principal); R97.20 Elevated prostate specific antigen [PSA]
CPT/HCPCS: 36415; 80048; 83036; 84153; 84154

== ENCOUNTER 2021-04-16 08:35 | Outpatient (CLI) | payer MEDICARE, OTHER ==
[2021-04-16 09:06] LABS: BASOPHILS # (AUTO) 0.1 10^3/uL (0.0-0.1); BASOPHILS % (AUTO) 0.9 %; EOSINOPHILS # (AUTO) 0.2 10^3/uL (0.0-0.7); EOSINOPHILS % (AUTO) 3.2 %; HCT - HEMATOCRIT 42.5 % (42.0-52.0); HGB - HEMOGLOBIN 13.7 g/dL (14.0-18.0); LYMPHOCYTES # (AUTO) 1.8 10^3/uL (1.5-3.5); LYMPHOCYTES % (AUTO) 32.9 %; MEAN CORPUSCULAR HEMOGLOBIN 31.5 pg (27.0-31.0); MEAN CORPUSCULAR HGB CONC 32.2 g/dL (32.0-36.0); MEAN CORPUSCULAR VOLUME 97.7 fL (80.0-94.0); MEAN PLATELET VOLUME 10.5 fL (7.4-11.4); MONOCYTES # (AUTO) 0.5 10^3/uL (0.0-1.0); MONOCYTES % (AUTO) 8.8 %; NEUTROPHILS # (AUTO) 2.9 10^3/uL (1.5-6.6); PLT - PLATELET COUNT 153 10^3/uL (130-450); RED BLOOD COUNT 4.35 10^6/uL (4.70-6.10); RED CELL DISTRIBUTION WIDTH 12.4 % (12.0-15.0); WHITE BLOOD COUNT 5.3 x10^3/uL (4.8-10.8)
[2021-04-16 09:23] LABS: ALBUMIN 4.2 g/dL (3.2-5.5); ALBUMIN/GLOBULIN RATIO 1.5 (1.0-2.2); ALKALINE PHOSPHATASE 64 IU/L (42-121); ALT ALANINE AMINOTRANSFERASE 22 IU/L (10-60); AST ASPARTATE AMINOTRANSFERASE 19 IU/L (10-42); BILIRUBIN,TOTAL 0.7 mg/dL (0.2-1.0); BUN - BLOOD UREA NITROGEN 18 mg/dL (6-20); CALCIUM 9.1 mg/dL (8.5-10.3); CARBON DIOXIDE - CO2 27 mmol/L (21-32); CHLORIDE 101 mmol/L (101-111); CHOL/HDL RATIO 3.2 (<5.0); CHOLESTEROL 137 mg/dL; CREATININE 1.3 mg/dL (0.6-1.2); GFR - MDRD 53 (>89); GLUCOSE 128 mg/dL (70-100); HDL CHOLESTEROL 43 mg/dL; LDL CHOLESTEROL,CALCULATED 66 mg/dL; LDL/HDL RATIO 1.5 (<3.6); POTASSIUM 4.5 mmol/L (3.5-5.0); SODIUM 138 mmol/L (135-145); TRIGLYCERIDES 139 mg/dL; VLDL CHOLESTEROL 28 mg/dL
[2021-04-16 09:35] LABS: THYROID STIMULATING HORMONE 3.7 uIU/mL (0.34-5.60)
[2021-04-16 12:50] LABS: ESTIMATED AVERAGE GLUCOSE 146 mg/dL (70-100); HEMOGLOBIN A1c% 6.7 % (4.27-6.07)
== END 2021-04-16 08:36 | disposition home or self-care (01) ==
LOC: LAB 08:35
PROVIDERS: ATTEND Family Medicine
DX: E11.9 Type 2 diabetes mellitus without complications (principal); G60.9 Hereditary and idiopathic neuropathy, unspecified; I10 Essential (primary) hypertension
CPT/HCPCS: 36415; 80053; 80061; 83036; 83721; 84443; 85025

== ENCOUNTER 2021-06-02 11:49 | Emergency (ER) | payer MEDICARE, OTHER ==
[2021-06-02 12:06] VITALS: BP 156/72
--- NOTE | 2021-06-02 12:35 | ED Physician Documentation ---
PD HPI UPPER EXT INJURY - Stated complaint Stated Complaint: LT ARM INJ - Chief complaint Chief Complaint: Trauma Ext - History obtained from History obtained from: Patient - Additonal information Additional information: His neighbors dog got out 2 weeks ago and went over to his house. He was holding the dog by the collar and the dog started running and then he fell onto his ulnar area on the left onto a board. Pain is mild but he has persistent swelling. No limited range of motion. No other injuries. Review of Systems Constitutional: denies: Fever, Chills Respiratory: denies: Dyspnea, Cough GI: denies: Abdominal Pain PD PAST MEDICAL HISTORY - Past Medical History Cardiovascular: Other - Past Surgical History Past Surgical History: Yes Cardiovascular: Coronary stent - Present Medications Home Medications: Ambulatory Orders Medication Instructions Recorded Confirmed Aspirin 81 mg PO DAILY 09/06/14 06/16/17 Atorvastatin [Lipitor] 80 mg PO DAILY 09/06/14 06/16/17 Calcium Carbonate/Vitamin D3 1 each PO DAILY 02/14/17 06/16/17 [Calcium 600-Vit D3 500 Softgel] Clopidogrel [Plavix] 75 mg PO ONCE 02/14/17 06/16/17 Iron,Carbonyl/Ascorbic Acid [Fe C 1 tab PO DAILY 02/14/17 06/16/17 Tablet] Metoprolol Tartrate 50 mg PO DAILY 02/14/17 06/16/17 Nitroglycerin 0.4 mg SL PRN PRN 02/14/17 06/16/17 Ubidecarenone [Co Q-10] 10 mg PO DAILY 02/14/17 06/16/17 lisinopriL [Lisinopril] 20 mg PO DAILY 02/14/17 06/16/17 metFORMIN [Glucophage] 250 mg PO DAILY 02/14/17 06/16/17 Hydrocodone/Acetaminophen [[place] 1 each PO Q6H PRN #12 tablet 10/25/18 5-325 Tablet] cephALEXin [Keflex] 500 mg PO Q6H #28 capsule 10/25/18 dexAMETHasone [Decadron] 4 mg PO DAILY #7 tablet 10/25/18 - Allergies Allergies/Adverse Reactions: Allergies Allergy/AdvReac Type Severity Reaction Status Date / Time lisinopril Allergy Unknown Verified 06/02/21 12:05 Sulfa (Sulfonamide Allergy Rash Verified 06/02/21 12:05 Antibiotics) - Social History Does the pt smoke?: No Smoking Status: Never smoker Does the pt drink ETOH?: No Does the pt have substance abuse?: No - Immunizations Immunizations are current?: Yes - POLST Patient has POLST: No PD ED PE NORMAL - Vitals Vital signs reviewed: Yes - General General: Alert and oriented X 3, No acute distress - Neck Neck: Supple, no meningeal sign, No bony TTP - Extremities Extremities: Other (There is a large swollen area with some overlying bruising and a small abrasion but no signs of infection over the left ulna. Full range of motion at the elbow and wrist. No real bony tenderness.) - Neuro Neuro: Alert and oriented X 3, Normal speech, Other (Hard of hearing) Results - Vitals Vitals: Vital Signs - 24 hr 06/02/21 12:00 Temperature 36 C L Heart Rate 73 Respiratory 16 Rate Blood Pressure 156/72 H O2 Saturation 97 Oxygen O2 Source Room air - Rads (name of study) 2 view x-ray of the left forearm is unremarkable Radiology: EMP read contemporaneously PD MEDICAL DECISION MAKING - ED course ED course: The patient And caregiver were counseled as to the diagnosis and need for follow-up. I counseled the patient with regard to signs and symptoms that would necessitate an urgent reevaluation in the emergency department. They understand they are welcome to return at any time if worse or if not improving as expected. This document was made in part using voice recognition software. While efforts are made to proofread this documents, sound alike and grammatical errors may occur. Departure - Departure Disposition: 01 Home, Self Care Clinical Impression: Contusion of left arm Qualifiers: Encounter type: initial encounter Qualified Code(s): S40.022A - Contusion of left upper arm, initial encounter Condition: Good Record reviewed to determine appropriate education?: Yes Instructions: ED Contusion Upper Ext Comments: X-rays looking fine, I suspect the swelling will go down over the next few weeks. Given that you are on Plavix it takes longer than usual. Return if you worsen. Follow-up with your doctor in a week or 2 if not improving. Tylenol as needed for pain. Discharge Date/Time: 06/02/21 12:46
--- NOTE | 2021-06-02 12:57 | XRAY Report ---
PROCEDURE: Forearm LT INDICATIONS: Trauma TECHNIQUE: 2 views of the forearm were acquired. COMPARISON: None FINDINGS: Bones: No fractures or dislocations. No suspicious bony lesions. Soft tissues: No suspicious soft tissue calcifications or masses. IMPRESSION: No acute fracture. No osseous lesion. If symptoms and/or clinical suspicion for pathology continue, f urther assessment with repeat plain films, or advanced imaging (e.g., CT, MRI, or bone scan) is recom mended for further assessment. Reviewed by: Maria A Hoover MD on 06/02/2021 12:56 PM PDT Approved by: Maria A Hoover MD on 06/02/2021 12:56 PM PDT Station ID: [id number]
== END 2021-06-02 12:46 | disposition home or self-care (01) ==
LOC: ED 11:49
DX: S40.022A Contusion of left upper arm, initial encounter (principal); W18.30XA Fall on same level, unspecified, initial encounter; Y93.89 Activity, other specified
CPT/HCPCS: 99281; 99283

== ENCOUNTER 2021-09-29 11:04 | Emergency (ER) | payer MEDICARE, OTHER ==
--- NOTE | 2021-09-29 13:15 | ED Physician Documentation ---
PD HPI UPPER EXT INJURY - Stated complaint Stated Complaint: RT ARM PX - Chief complaint Chief Complaint: Ext Problem - History obtained from History obtained from: Patient - Additonal information Additional information: The patient comes to the emergency department chief complaint of right upper arm pain. He states that several days ago, he was lifting a heavy bucket and he twisted his arm and felt as though his shoulder "spun around inside the socket". He states he had a little pain at the time, and did not notice any popping or clicking, but other than that, was able to use the shoulder fairly well over the next few days. This morning, he states he was reaching up to clip a branch when the branch suddenly began to fall. He reached his arm out to try to grab the branch and suddenly felt a pop in his biceps muscle. 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 However, if he picks up something heavier, it hurts in his biceps muscle. No other injuries or complaints at this time. No numbness or tingling in his distal right upper extremity. Review of Systems Ten Systems: 10 systems reviewed and negative Constitutional: reports: Reviewed and negative Eyes: reports: Reviewed and negative Ears: reports: Reviewed and negative Nose: reports: Reviewed and negative Throat: reports: Reviewed and negative Cardiac: reports: Reviewed and negative Respiratory: reports: Reviewed and negative GI: reports: Reviewed and negative : reports: Reviewed and negative Skin: reports: Reviewed and negative Musculoskeletal: reports: Extremity pain Neurologic: reports: Reviewed and negative Psychiatric: reports: Reviewed and negative Endocrine: reports: Reviewed and negative Immunocompromised: reports: Reviewed and negative PD PAST MEDICAL HISTORY - Past Medical History Past Medical History: Yes Cardiovascular: Hypertension, High cholesterol, Other Respiratory: None Neuro: None Endocrine/Autoimmune: Type 2 diabetes HEENT: None Derm: None - Past Surgical History Past Surgical History: Yes Cardiovascular: Coronary stent - Present Medications Home Medications: Ambulatory Orders Medication Instructions Recorded Confirmed Aspirin 81 mg PO DAILY 09/06/14 09/29/21 Atorvastatin [Lipitor] 80 mg PO DAILY 09/06/14 09/29/21 Metoprolol Tartrate 50 mg PO DAILY 02/14/17 09/29/21 - Allergies Allergies/Adverse Reactions: Allergies Allergy/AdvReac Type Severity Reaction Status Date / Time lisinopril Allergy Unknown Verified 09/29/21 11:14 Sulfa (Sulfonamide Allergy Rash Verified 09/29/21 11:14 Antibiotics) - Social History Does the pt smoke?: No Smoking Status: Never smoker Does the pt drink ETOH?: No Does the pt have substance abuse?: No - Immunizations Immunizations are current?: Yes - POLST Patient has POLST: No PD ED PE NORMAL - Vitals Vital signs reviewed: Yes - General General: Alert and oriented X 3, No acute distress, Well developed/nourished - HEENT HEENT: Atraumatic, PERRL, EOMI, Moist mucous membranes - Neck Neck: Supple, no meningeal sign - Cardiac Cardiac: Strong equal pulses - Respiratory Respiratory: No respiratory distress - Derm Derm: Normal color, Warm and dry, No rash - Extremities Extremities: No deformity, Other (Tenderness without deformity or enlargement noted over Mid belly of right biceps. No tenderness, deformity, or limited range of motion of The rest of the right upper extremity or shoulder.) - Neuro Neuro: Alert and oriented X 3 - Psych Psych: Normal mood, Normal affect Results - Vitals Vitals: Vital Signs - 24 hr 09/29/21 11:10 Temperature 36.1 C L Heart Rate 73 Respiratory 16 Rate Blood Pressure 172/84 H O2 Saturation 96 Oxygen O2 Source Room air - Rads (name of study) R humerus XR series Radiology: Final report received, EMP read indepedently, See rad report PD MEDICAL DECISION MAKING - ED course Complexity details: reviewed results, re-evaluated patient, considered differential, d/w patient ED course: The x-ray series was unremarkable, and the patient's physical exam findings were indicative of a biceps muscular strain. The patient actually had good range of motion of his shoulder, but I have advised him if he wants to have further evaluation this, he can follow-up with his primary care physician. We have discussed timeline for improvement and the usual indications for return. Departure - Departure Disposition: 01 Home, Self Care Clinical Impression: Biceps muscle strain Qualifiers: Encounter type: initial encounter Laterality: right Qualified Code(s): S46.211A - Strain of muscle, fascia and tendon of other parts of biceps, right arm, initial encounter Condition: Stable Instructions: ED Strain Muscle Ext Comments: Your x-ray series looks fairly good. There is no evidence of a break or dislocation in your bones. You actually have very good motion of your shoulder and the pain seems to be centered in your biceps muscle. Most likely, you strained the muscle this morning, which involves small tears. This is most likely why you felt the "pop". At this point in time, there is nothing specific to be done and the muscle just needs to be given time to heal. He should follow-up with her primary care physician if you have not noticed improvement in the next 2 weeks. You may take ibuprofen and Tylenol if needed. Do not perform any heavy work with the arm until it is feeling better.
[2021-09-29 13:33] VITALS: BP 168/88
--- NOTE | 2021-09-29 14:32 | XRAY Report ---
REVISED: THIS REPORT WAS ORIGINALLY SIGNED ON 09/29/2021 @ 2:31 PM. THE RECORD WAS ACCESSED TO CORRECT LATERALITY OF EXAM ON 10/21/2021. PROCEDURE: Humerus RT INDICATIONS: R arm pain TECHNIQUE: 3 views of the humerus were acquired. COMPARISON: None FINDINGS: Bones: No fractures or dislocations. No suspicious bony lesions. Soft tissues: No suspicious soft tissue calcifications. IMPRESSION: No visualized acute fracture or dislocation. However, occult injury cannot be excluded. Recommend short interval imaging follow-up in 7-10 days as clinically indicated for additional evaluation. Reviewed by: Darshana Mccloud MD on 09/29/2021 2:31 PM PDT Approved by: Darshana Mccloud MD on 09/29/2021 2:31 PM PDT Station ID: [id number]
== END 2021-09-29 13:31 | disposition home or self-care (01) ==
LOC: ED 11:04
DX: S46.211A Strain of muscle, fascia and tendon of other parts of biceps, right arm, initial encounter (principal); X50.0XXA Overexertion from strenuous movement or load, initial encounter; X50.9XXA Other and unspecified overexertion or strenuous movements or postures, initial encounter; Y93.H2 Activity, gardening and landscaping
CPT/HCPCS: 99282; 99283

== ENCOUNTER 2021-10-09 08:32 | Outpatient (CLI) | payer MEDICARE, OTHER ==
[2021-10-09 08:55] LABS: ALBUMIN 4.5 g/dL (3.2-5.5); ALBUMIN/GLOBULIN RATIO 1.7 (1.0-2.2); BILIRUBIN,TOTAL 0.8 mg/dL (0.2-1.0); CALCIUM 9.6 mg/dL (8.5-10.3); CREATININE 1.1 mg/dL (0.6-1.2); POTASSIUM 4.8 mmol/L (3.5-5.0); TOTAL PROTEIN 7.2 g/dL (6.7-8.2)
[2021-10-09 09:14] LABS: ESTIMATED AVERAGE GLUCOSE 154 mg/dL (70-100)
== END 2021-10-09 08:33 | disposition home or self-care (01) ==
LOC: LAB 08:32
PROVIDERS: ATTEND Family Medicine
DX: E11.9 Type 2 diabetes mellitus without complications (principal); M54.16 Radiculopathy, lumbar region; R20.0 Anesthesia of skin; I10 Essential (primary) hypertension
CPT/HCPCS: 36415; 80053; 83036

== ENCOUNTER 2022-04-14 09:09 | Emergency (ER) | payer MEDICARE, OTHER ==
[2022-04-14 10:27] LABS: BASOPHILS % (AUTO) 0.7 %; EOSINOPHILS # (AUTO) 0.1 10^3/uL (0.0-0.7); EOSINOPHILS % (AUTO) 1.8 %; HCT - HEMATOCRIT 42.9 % (42.0-52.0); HGB - HEMOGLOBIN 13.8 g/dL (14.0-18.0); LYMPHOCYTES # (AUTO) 1.2 10^3/uL (1.5-3.5); LYMPHOCYTES % (AUTO) 21.9 %; MEAN CORPUSCULAR HGB CONC 32.2 g/dL (32.0-36.0); MEAN CORPUSCULAR VOLUME 96.4 fL (80.0-94.0); MONOCYTES # (AUTO) 0.5 10^3/uL (0.0-1.0); MONOCYTES % (AUTO) 8.8 %; NEUTROPHILS # (AUTO) 3.7 10^3/uL (1.5-6.6); NEUTROPHILS % (AUTO) 66.6 %; PLT - PLATELET COUNT 151 10^3/uL (130-450); RED BLOOD COUNT 4.45 10^6/uL (4.70-6.10); RED CELL DISTRIBUTION WIDTH 12.5 % (12.0-15.0); WHITE BLOOD COUNT 5.6 x10^3/uL (4.8-10.8)
--- NOTE | 2022-04-14 10:27 | XRAY Report ---
PROCEDURE: Chest 1 View X-Ray INDICATIONS: Chest pain TECHNIQUE: One view of the chest was acquired. COMPARISON: None. FINDINGS: Surgical changes and devices: None. Lungs and pleura: No pleural effusions or pneumothorax. Lungs are clear. Mediastinum: Mediastinal contours appear normal. Heart size is normal. Bones and chest wall: No suspicious bony lesions. Overlying soft tissues appear unremarkable. IMPRESSION: No acute cardiopulmonary process. Reviewed by: Cortez Venegas on 04/14/2022 10:25 AM [facility] Approved by: Cortez Venegas on 04/14/2022 10:25 AM [facility] Station ID: [id number]
[2022-04-14 10:45] LABS: ALBUMIN 4.1 g/dL (3.2-5.5); ALBUMIN/GLOBULIN RATIO 1.4 (1.0-2.2); BILIRUBIN,TOTAL 0.8 mg/dL (0.2-1.0); CALCIUM 9.2 mg/dL (8.5-10.3); POTASSIUM 4.7 mmol/L (3.5-5.0)
--- NOTE | 2022-04-14 12:58 | CT Report ---
PROCEDURE: HEAD WO INDICATIONS: vertigo TECHNIQUE: Noncontrast 4.5 mm thick angled axial sections acquired from the foramen magnum to the vertex. For r adiation dose reduction, the following was used: automated exposure control, adjustment of mA and/or kV according to patient size. COMPARISON: None. FINDINGS: Image quality: Mildly motion degraded CSF spaces: Basal cisterns are patent. Lateral ventricles are symmetric. Volume: Vascular calcifications. Periventricular white matter disease is commonly seen with chronic m icroangiopathy. Volume loss is present. These findings are moderate. Brain: No intracranial hemorrhage. Quispe-white differentiation is grossly maintained. Craniofacial structures: Partially visualized opacification of the left maxillary sinus. Rightward na sonia septum deviation. Orbits are within normal limits. IMPRESSION: No acute intracranial abnormality. Senescent changes as above. If there is concern for parenchymal ab normality, consider MRI. Partially visualized dense opacification of the left maxillary sinus, please correlate with clinical presentation. Reviewed by: Haroon Abraham MD on 04/14/2022 12:56 PM PST Approved by: Haroon Abraham MD on 04/14/2022 12:56 PM PST Station ID: [id number]
--- NOTE | 2022-04-14 13:14 | ED Physician Documentation ---
History of Present Illness - Stated complaint Stated Complaint: DIZZY/LIGHT HEADED - Chief complaint Chief Complaint: Cardiac - History obtained from History obtained from: Patient - Additonal information Additional information: The patient comes to the emergency department chief complaint of episodes of "dizziness". He states it first happened a few weeks ago and that he noticed it mainly when he was up walking around. He felt as though the sense of dizziness was in his head and caused him to have to hold onto a wall when he walked. The patient states that he did not fall, and that he felt much better when he was sitting down. He was not lightheaded but states that it was more of a sense of movement. The patient states that he could use all of his limbs in a coordinated fashion if he was sitting down, and could eat and drink without difficulty. He denies any focal weakness at that time. The patient states that the episode lasted some hours and then resolved on its own. About 4 days ago, he had another similar episode in which he had a sense of dizziness when he was up and about walking. Again, it was a sense of movement and caused him to have trouble with his balance while being up walking. However, he states he did not have any focal deficits and was not ataxic when he was not trying to be up and around. He states the episode lasted most of the day, but that he was able to go to bed and get a good night sleep. When he woke up the next day, he felt okay until he got up out of bed and then he felt dizzy again. The symptoms were the same as the day before. By the next morning, however, the symptoms were gone and the patient has felt completely normal for the last 2 days. He denies any tinnitus. No history of CVA. He denies any lightheadedness, palpitations, chest pain, or shortness of breath. The patient did not feel any feeling of heart racing or palpitating during the episodes. He states he has not been ill with anything recently. He was seen in the urgent care this morning and sent here for further evaluation. No other complaints at this time. No new medicationsthe patient states he does not like to take medications and mostly, does not. PD PAST MEDICAL HISTORY - Past Medical History Past Medical History: Yes Cardiovascular: Hypertension, High cholesterol, Other Respiratory: None Neuro: None Endocrine/Autoimmune: Type 2 diabetes HEENT: None Derm: None - Past Surgical History Past Surgical History: Yes Cardiovascular: Coronary stent - Present Medications Home Medications: Ambulatory Orders Medication Instructions Recorded Confirmed Aspirin 81 mg PO DAILY 09/06/14 04/14/22 Atorvastatin [Lipitor] 80 mg PO DAILY 09/06/14 04/14/22 Metoprolol Tartrate 50 mg PO DAILY 02/14/17 04/14/22 - Allergies Allergies/Adverse Reactions: Allergies Allergy/AdvReac Type Severity Reaction Status Date / Time lisinopril Allergy Unknown Verified 04/14/22 09:24 metformin Allergy Unknown Verified 04/14/22 09:24 Sulfa (Sulfonamide Allergy Rash Verified 04/14/22 09:24 Antibiotics) - Social History Does the pt smoke?: No Smoking Status: Never smoker Does the pt drink ETOH?: No Does the pt have substance abuse?: No - Immunizations Immunizations are current?: Yes - POLST Patient has POLST: No PD ED PE NORMAL - Vitals Vital signs reviewed: Yes - General General: Alert and oriented X 3, No acute distress, Well developed/nourished, Other (Very well appearing male in no apparent distress.) - HEENT HEENT: Atraumatic, PERRL, EOMI, Moist mucous membranes, Other (No nystagmus) - Neck Neck: Supple, no meningeal sign - Cardiac Cardiac: RRR, No murmur - Respiratory Respiratory: No respiratory distress, Clear bilaterally - Abdomen Abdomen: Soft, Non tender, Non distended - Derm Derm: Normal color, Warm and dry, No rash - Extremities Extremities: No deformity, No edema - Neuro Neuro: Alert and oriented X 3, multicultural services librarian 2-12 intact, Normal speech - Psych Psych: Normal mood, Normal affect Results - Vitals Vitals: Oxygen O2 Source Room air - EKG (time done) 0926 EKG releavant findings:: EKG personally interpreted by author of this note. Relevant findings are: Rate: Rate (enter#) (83) Rhythm: NSR [place]: Normal Intervals: Normal TN QRS: Normal Ischemia: Normal ST segments Compare to prior EKG: Old EKG unavailable Computer interpretation: Agree with computer - Labs Labs: Laboratory Tests 04/14/22 04/14/22 04/14/22 10:21 10:21 10:21 WBC 5.6 RBC 4.45 L Hgb 13.8 L Hct 42.9 MCV 96.4 H MCH 31.0 MCHC 32.2 RDW 12.5 Plt Count 151 MPV 10.0 Neut # (Auto) 3.7 Lymph # (Auto) 1.2 L [place] # (Auto) 0.5 Eos # (Auto) 0.1 Baso # (Auto) 0.0 Absolute Nucleated RBC 0.00 Nucleated RBC % 0.0 Sodium 140 Potassium 4.7 Chloride 100 L Carbon Dioxide 32 Anion Gap 8.0 BUN 19 Creatinine 1.0 Estimated GFR (MDRD) 71 L Glucose 134 H Calcium 9.2 Total Bilirubin 0.8 AST 22 ALT 28 Alkaline Phosphatase 65 Troponin I High Sens 7.6 Total Protein 7.0 Albumin 4.1 Globulin 2.9 Albumin/Globulin Ratio 1.4 Lipase 38 - Rads (name of study) Chest x-ray Relevant Findings:: Final report received, See rad report (No acute findings) CT head Relevant Findings:: Final report received, See rad report (No findings of significance) PD Medical Decision Making - ED course Complexity details: reviewed results, re-evaluated patient, considered differential, d/w patient ED course: The patient was very well-appearing in the emergency department and no longer had any symptoms, and had not for the last 2 days. His symptoms sounded most consistent with positional vertigo, but given his age, I felt he should be worked up for other potential contributing factors. Laboratory studies, including a CBC and ER abdominal panel, were ordered and unremarkable, as reviewed by me. EKG was ordered and reviewed by me and negative for any sig nificant findings. Chest x-ray and head CT were also ordered, reviewed by me, and read by radiologist, and both found to be negative. I discussed with the patient the option of having something on hand for vertigo and at this point in time, he prefers not to. We have discussed the need for follow-up to discuss potentially having a stress test done, since patient has coronary artery disease, and also, an event monitor to be sure that the patient is not having cardiac rhythm issues which are contributing to these episodes of dizziness. The patient is agreeable to this plan. We have discussed the usual indications for return. Departure - Departure Disposition: 01 Home, Self Care Clinical Impression: Vertigo Condition: Stable Instructions: ED Dizziness UKO Comments: Your labs and CT scan look good today, as does your EKG. It is not clear what caused your episodes of dizziness, though this sounds likely to be a peripheral vertigo, which is a dizziness that comes from your inner ear. However there is also a chance that you could be having heart rhythms that are irregular and as such, it is good idea to follow-up with your primary doctor and discuss potentially wearing an event monitor to see what is going on during these dizzy episodes. You should also talk to your doctor about having a follow-up stress test done, given that you have a history of coronary artery disease. At this point in time, you having no symptoms and no emergent condition has been identified. Please be sure you drink plenty of fluids. Discharge Date/Time: 04/14/22 14:01
[2022-04-14 13:56] VITALS: BP 146/84
== END 2022-04-14 14:01 | disposition home or self-care (01) ==
LOC: ED 09:09
DX: R42 Dizziness and giddiness (principal); I10 Essential (primary) hypertension; E11.9 Type 2 diabetes mellitus without complications
CPT/HCPCS: 36415; 80053; 83690; 84484; 85025; 93005; 99284

== ENCOUNTER 2022-06-05 09:06 | Outpatient (CLI) | payer MEDICARE, OTHER ==
[2022-06-05 09:43] LABS: CALCIUM 8.9 mg/dL (8.5-10.3); CREATININE 1.1 mg/dL (0.6-1.2); POTASSIUM 4.3 mmol/L (3.5-5.0)
[2022-06-05 10:00] LABS: THYROID STIMULATING HORMONE 2.82 uIU/mL (0.34-5.60)
[2022-06-05 10:20] LABS: ESTIMATED AVERAGE GLUCOSE 157 mg/dL (70-100); HEMOGLOBIN A1c% 7.1 % (4.27-6.07)
== END 2022-06-05 09:07 | disposition home or self-care (01) ==
LOC: LAB 09:06
PROVIDERS: ATTEND Family Medicine
DX: I10 Essential (primary) hypertension (principal); R97.20 Elevated prostate specific antigen [PSA]; E11.9 Type 2 diabetes mellitus without complications
CPT/HCPCS: 36415; 80048; 83036; 84153; 84443

== ENCOUNTER 2022-09-03 08:42 | Outpatient (CLI) | payer MEDICARE, OTHER ==
--- NOTE | 2022-09-03 16:45 | CT Report ---
PROCEDURE: SINUS SCREENING WO INDICATIONS: CHRONIC PANSINUSITIS TECHNIQUE: Noncontrast 3.0 mm axial images acquired from the frontal sinuses to the mid-sella, with coronal and sagittal reformats. For radiation dose reduction, the following was used: automated exposure control , adjustment of mA and/or kV according to patient size. COMPARISON: Correlation is made with head CT, 04/14/2022. FINDINGS: Image quality: Excellent. Maxillary Sinuses: There is complete opacification of the left maxillary sinus. It is retention cysts can be seen within the right maxillary sinus. There is demineralization of the medial ramirez of the m axillary sinuses, left worse than right. Ethmoid Air Cells: No bony remodeling or destruction. Mild mucosal thickening is seen within the ant erior ethmoid air cells. Sphenoid Sinuses: No bony remodeling or destruction. Sinuses are clear. Frontal Sinuses: No bony remodeling or destruction. Mild mucosal thickening is seen within the infer ior medial right frontal sinus. Ostiomeatal Complexes: The ostiomeatal complexes are patent, yet they are constitutionally narrowed, with bilateral Jasmine cells. Miscellaneous: Visualized intra-orbital contents are normal. Bilateral blessing bullosa are seen. Mod erate rightward nasal septal deviation is seen. IMPRESSION: Paranasal sinus disease is seen, which is worst within the left maxillary sinus. The ostiomeatal complexes are patent, yet they are constitutionally narrowed, with bilateral Jasmine c ells. Areas of bony demineralization are seen, which are consistent with chronic sinusitis. Reviewed by: Garcia Lance MD on 09/03/2022 3:43 PM [facility] Approved by: Garcia Lance MD on 09/03/2022 3:43 PM [facility] Station ID: [id number]
== END 2022-09-03 08:43 | disposition home or self-care (01) ==
LOC: DI 08:42
PROVIDERS: ATTEND Otolaryngology
DX: J32.4 Chronic pansinusitis (principal)

== ENCOUNTER 2022-09-21 08:04 | Outpatient (CLI) | payer MEDICARE, OTHER ==
[2022-09-21 08:51] LABS: BASOPHILS % (AUTO) 0.8 %; EOSINOPHILS # (AUTO) 0.1 10^3/uL (0.0-0.7); EOSINOPHILS % (AUTO) 2.4 %; HCT - HEMATOCRIT 41.9 % (42.0-52.0); HGB - HEMOGLOBIN 13.6 g/dL (14.0-18.0); LYMPHOCYTES # (AUTO) 1.5 10^3/uL (1.5-3.5); LYMPHOCYTES % (AUTO) 30.2 %; MEAN CORPUSCULAR HEMOGLOBIN 31.6 pg (27.0-31.0); MEAN CORPUSCULAR HGB CONC 32.5 g/dL (32.0-36.0); MEAN CORPUSCULAR VOLUME 97.4 fL (80.0-94.0); MEAN PLATELET VOLUME 10.2 fL (7.4-11.4); MONOCYTES # (AUTO) 0.5 10^3/uL (0.0-1.0); MONOCYTES % (AUTO) 9.1 %; NEUTROPHILS # (AUTO) 2.9 10^3/uL (1.5-6.6); NEUTROPHILS % (AUTO) 57.3 %; PLT - PLATELET COUNT 154 10^3/uL (130-450); RED CELL DISTRIBUTION WIDTH 12.3 % (12.0-15.0)
[2022-09-21 09:09] LABS: ALBUMIN 4.2 g/dL (3.2-5.5); ALBUMIN/GLOBULIN RATIO 1.5 (1.0-2.2); ALKALINE PHOSPHATASE 70 IU/L (42-121); ALT ALANINE AMINOTRANSFERASE 21 IU/L (10-60); AST ASPARTATE AMINOTRANSFERASE 16 IU/L (10-42); BILIRUBIN,TOTAL 0.7 mg/dL (0.2-1.0); BUN - BLOOD UREA NITROGEN 20 mg/dL (6-20); CALCIUM 9.3 mg/dL (8.5-10.3); CARBON DIOXIDE - CO2 31 mmol/L (21-32); CHLORIDE 103 mmol/L (101-111); CHOL/HDL RATIO 4.1 (<5.0); CHOLESTEROL 158 mg/dL; CREATININE 1.1 mg/dL (0.6-1.3); GFR - MDRD 64 (>89); GLUCOSE 143 mg/dL (74-104); HDL CHOLESTEROL 39 mg/dL; LDL CHOLESTEROL,CALCULATED 81 mg/dL; LDL/HDL RATIO 2.1 (<3.6); POTASSIUM 4.4 mmol/L (3.5-4.5); SODIUM 137 mmol/L (135-145); TRIGLYCERIDES 189 mg/dL (48-352); VLDL CHOLESTEROL 38 mg/dL
[2022-09-21 09:20] LABS: THYROID STIMULATING HORMONE 2.93 uIU/mL (0.34-5.60)
[2022-09-21 10:42] LABS: ESTIMATED AVERAGE GLUCOSE 157 mg/dL (70-100); HEMOGLOBIN A1c% 7.1 % (4.27-6.07)
== END 2022-09-21 08:05 | disposition home or self-care (01) ==
LOC: LAB 08:04
PROVIDERS: ATTEND Family Medicine
DX: I10 Essential (primary) hypertension (principal); R42 Dizziness and giddiness; H66.92 Otitis media, unspecified, left ear; M54.16 Radiculopathy, lumbar region; E11.9 Type 2 diabetes mellitus without complications; E78.5 Hyperlipidemia, unspecified
CPT/HCPCS: 36415; 80053; 80061; 83036; 83721; 84443; 85025

== ENCOUNTER 2022-10-26 08:57 | Outpatient (CLI) | payer MEDICARE, OTHER ==
--- NOTE | 2022-10-26 14:01 | CT Report ---
PROCEDURE: SINUS SCREENING WO INDICATIONS: CHRONIC MAXILLARY SINUSITIS TECHNIQUE: Noncontrast 3.0 mm axial images acquired from the frontal sinuses to the mid-sella, with coronal and sagittal reformats. For radiation dose reduction, the following was used: automated exposure control , adjustment of mA and/or kV according to patient size. COMPARISON: None. FINDINGS: Image quality: Excellent. Maxillary Sinuses: Mild hyperostosis of left maxillary sinus wall. Complete opacification of the left maxillary sinus. Mucous retention cysts within the right maxillary sinus. Ethmoid Air Cells: No bony remodeling or destruction. Mild mucosal thickening within the anterior et hmoid air cells. Sphenoid Sinuses: No bony remodeling or destruction. Sinuses are clear. Frontal Sinuses: No bony remodeling or destruction. Mild mucosal thickening of the inferior frontal sinuses. Ostiomeatal Complexes: Ostiomeatal complexes are patent but constitutionally narrowed with bilateral Jasmine cells. . Miscellaneous: Visualized intra-orbital contents are normal. Bilateral blessing bullosa. Rightward nasal septal deviation. Atherosclerotic vascular calcifications. IMPRESSION: Mild paranasal sinus disease with complete opacification of the left maxillary sinus. Hyperostosis of the left maxillary sinus wall, consistent with chronic sinusitis. Reviewed by: Igor Allan MD on 10/26/2022 2:00 PM PDT Approved by: Iogr Allan MD on 10/26/2022 2:00 PM PDT Station ID: [id number]
== END 2022-10-26 08:58 | disposition home or self-care (01) ==
LOC: DI 08:57
PROVIDERS: ATTEND Otolaryngology
DX: J32.0 Chronic maxillary sinusitis (principal)

== ENCOUNTER 2023-01-20 08:01 | Outpatient (CLI) | payer MEDICARE, OTHER ==
[2023-01-20 08:31] LABS: CALCIUM 9.6 mg/dL (8.5-10.3); CREATININE 1.1 mg/dL (0.6-1.3); POTASSIUM 4.7 mmol/L (3.5-4.5)
[2023-01-20 08:40] LABS: CREATININE,URINE 165.7 mg/dL; MICROALBUM/CREATININE RATIO,UR 13.9 ug/mg (<30.0); MICROALBUMIN,URINE 2.3 mg/dL
[2023-01-20 11:30] LABS: ESTIMATED AVERAGE GLUCOSE 174 mg/dL (70-100); HEMOGLOBIN A1c% 7.7 % (4.27-6.07)
== END 2023-01-20 08:02 | disposition home or self-care (01) ==
LOC: LAB 08:01
PROVIDERS: ATTEND Family Medicine
DX: E11.9 Type 2 diabetes mellitus without complications (principal)
CPT/HCPCS: 36415; 80048; 82043; 82570; 83036

== ENCOUNTER 2023-05-06 07:56 | Outpatient (CLI) | payer MEDICARE, OTHER ==
[2023-05-06 08:30] LABS: BASOPHILS % (AUTO) 0.6 %; EOSINOPHILS # (AUTO) 0.1 10^3/uL (0.0-0.7); EOSINOPHILS % (AUTO) 1.6 %; HCT - HEMATOCRIT 42.8 % (42.0-52.0); HGB - HEMOGLOBIN 13.5 g/dL (14.0-18.0); LYMPHOCYTES # (AUTO) 1.5 10^3/uL (1.5-3.5); LYMPHOCYTES % (AUTO) 30.2 %; MEAN CORPUSCULAR HEMOGLOBIN 30.8 pg (27.0-31.0); MEAN CORPUSCULAR HGB CONC 31.5 g/dL (32.0-36.0); MEAN CORPUSCULAR VOLUME 97.5 fL (80.0-94.0); MEAN PLATELET VOLUME 10.2 fL (7.4-11.4); MONOCYTES # (AUTO) 0.5 10^3/uL (0.0-1.0); MONOCYTES % (AUTO) 9.6 %; NEUTROPHILS # (AUTO) 2.9 10^3/uL (1.5-6.6); NEUTROPHILS % (AUTO) 57.8 %; PLT - PLATELET COUNT 149 10^3/uL (130-450); RED BLOOD COUNT 4.39 10^6/uL (4.70-6.10); RED CELL DISTRIBUTION WIDTH 12.4 % (12.0-15.0)
[2023-05-06 08:45] LABS: ALBUMIN 4.1 g/dL (3.2-5.5); ALBUMIN/GLOBULIN RATIO 1.6 (1.0-2.2); ALKALINE PHOSPHATASE 74 IU/L (42-121); ALT ALANINE AMINOTRANSFERASE 21 IU/L (10-60); AST ASPARTATE AMINOTRANSFERASE 16 IU/L (10-42); BILIRUBIN,TOTAL 0.8 mg/dL (0.2-1.0); BUN - BLOOD UREA NITROGEN 21 mg/dL (6-20); CALCIUM 9.6 mg/dL (8.5-10.3); CARBON DIOXIDE - CO2 28 mmol/L (21-32); CHLORIDE 102 mmol/L (101-111); CHOL/HDL RATIO 4.2 (<5.0); CHOLESTEROL 148 mg/dL; CREATININE 1.1 mg/dL (0.6-1.3); GFR - MDRD 64 (>89); GLUCOSE 141 mg/dL (74-104); HDL CHOLESTEROL 35 mg/dL; LDL CHOLESTEROL,CALCULATED 76 mg/dL; LDL/HDL RATIO 2.2 (<3.6); POTASSIUM 4.2 mmol/L (3.5-4.5); SODIUM 136 mmol/L (135-145); TOTAL PROTEIN 6.6 g/dL (6.4-8.9); TRIGLYCERIDES 187 mg/dL (48-352); VLDL CHOLESTEROL 37 mg/dL
[2023-05-06 08:59] LABS: THYROID STIMULATING HORMONE 3.45 uIU/mL (0.34-5.60)
[2023-05-06 10:31] LABS: ESTIMATED AVERAGE GLUCOSE 163 mg/dL (70-100); HEMOGLOBIN A1c% 7.3 % (4.27-6.07)
== END 2023-05-06 07:57 | disposition home or self-care (01) ==
LOC: LAB 07:56
PROVIDERS: ATTEND Family Medicine
DX: E78.5 Hyperlipidemia, unspecified (principal)
CPT/HCPCS: 36415; 80053; 80061; 83036; 83721; 84443; 85025

== ENCOUNTER 2023-10-14 08:19 | Outpatient (CLI) | payer MEDICARE, OTHER ==
[2023-10-14 09:04] LABS: CALCIUM 9.2 mg/dL (8.5-10.3); CREATININE 1.1 mg/dL (0.6-1.3); POTASSIUM 4.4 mmol/L (3.5-4.5)
[2023-10-14 10:43] LABS: ESTIMATED AVERAGE GLUCOSE 169 mg/dL (70-100); HEMOGLOBIN A1c% 7.5 % (4.27-6.07)
== END 2023-10-14 08:20 | disposition home or self-care (01) ==
LOC: LAB 08:19
PROVIDERS: ATTEND Family Medicine
DX: E11.9 Type 2 diabetes mellitus without complications (principal)
CPT/HCPCS: 36415; 80048; 83036